=== PATIENT | male | born 1990 | race Caucasian/White ===

== ENCOUNTER 2017-01-03 07:33 | Day surgery (SDC) | payer OTHER ==
[~2017-01-03] VITALS: Ht 172.7 cm; Wt 96.2 kg
[2017-01-03] VITALS (12 sets, daily range): BP systolic 106–141; BP diastolic 63–86; PULSE 80–96; RESP 14–19; Ht 172.7 cm; Wt 96.2 kg
[~2017-01-03 07:33] MED LIST: CEFAZOLIN 1 GM/50 ML (PMX) 50 ML IVPB SCH; SOD CHLORIDE 0.9% 1,000 ML IV SCH
[2017-01-03] MEDS ORDERED: DOXY100T20 PO (07:58)
[2017-01-03 08:37] LABS: BASOPHILS % 0.3 % (0.0-2.0); EOSINOPHILS # 0.2 10^3/ul (0.0-0.5); EOSINOPHILS % 1.6 % (0.0-7.0); HEMATOCRIT 43.5 % (42.0-52.0); HEMOGLOBIN 15.4 g/dl (14.0-18.0); LYMPHOCYTES # 3.3 10^3/ul (0.8-2.9); LYMPHOCYTES % 34.8 % (15.0-51.0); MEAN CORPUSCULAR HEMOGLOBIN 30.7 pg (29.0-33.0); MEAN CORPUSCULAR HGB CONC 35.4 g/dl (32.0-37.0); MEAN CORPUSCULAR VOLUME 86.8 fl (82.0-101.0); MEAN PLATELET VOLUME 10.7 fl (7.4-10.4); MONOCYTE # 0.6 10^3/ul (0.3-0.9); MONOCYTES % 6.5 % (0.0-11.0); NEUTROPHILS % 56.6 % (39.0-77.0); PLATELET COUNT 258 10^3/UL (140-415); RED BLOOD COUNT 5.01 10^6/ul (4.70-6.10); RED CELL DISTRIBUTION WIDTH 12.2 % (11.5-14.5); WHITE BLOOD COUNT 9.3 10^3/ul (4.8-10.8)
[2017-01-03 08:41] LABS: PROTIME 13.2 Sec (12.2-14.2)
[2017-01-03 08:42] LABS: PARTIAL THROMBOPLASTIN TIME 27.3 Sec (25.0-35.0)
[2017-01-03 08:47] LABS: ALBUMIN 4.2 g/dl (3.3-4.9); ALBUMIN/GLOBULIN RATIO 1.2; BILIRUBIN,INDIRECT 0.5 mg/dl (0-1.1); BILIRUBIN,TOTAL 0.5 mg/dl (0.2-1.3); TOTAL PROTEIN 7.7 g/dl (6.1-8.1)
[2017-01-03 09:12] LABS: CALCIUM 9.4 mg/dl (8.4-10.2); CREATININE 0.82 mg/dl (0.61-1.24); POTASSIUM 3.8 mmol/L (3.5-5.1)
[2017-01-03] MEDS ORDERED: GLYCOPYRROLATE 0.4 MG INJ ONE ×2 (09:46→09:49)
[2017-01-03] MEDS ORDERED: SUCCINYLCHOLINE CHLORIDE 100 MG/5 ML SYG IV ONE ×2 (09:46→09:49)
[2017-01-03] MEDS ORDERED: LIDOCAINE 2% (SDV) 5 ML INJ ONE ×2 (09:46→09:49)
[2017-01-03] MEDS ORDERED: NEOSTIGMINE 3 MG/3 ML SYRINGE ONE ×2 (09:46→09:49)
[2017-01-03] MEDS ORDERED: ROCURONIUM 50 MG INJ ONE ×2 (09:46→09:49)
[2017-01-03] MEDS ORDERED: PROPOFOL 0 ML ONE (09:46)
[2017-01-03] MEDS ORDERED: MEPERIDINE 100 MG INJ ONE ×2 (09:47→09:49)
[2017-01-03] MEDS ORDERED: PROPOFOL 20 ML ONE (09:49)
[2017-01-03] MEDS ORDERED: POLYMYXIN/BACITRACIN 1L IRRIG ONE (09:53)
[2017-01-03] MEDS ORDERED: MEPERIDINE 25 MG INJ IV PRN (10:00)
[2017-01-03] MEDS ORDERED: LABETALOL HCL 20MG INJ IV PRN (10:00)
[2017-01-03] MEDS ORDERED: HYDROmorphONE (0.2 MG/ML) 10ML SYG IV PRN ×3 (10:00)
[2017-01-03] MEDS ORDERED: hydrALAzine 20 MG INJ IV PRN (10:00)
[2017-01-03] MEDS ORDERED: ONDANSETRON 4 MG INJ IV PRN (10:00)
[2017-01-03] MEDS ORDERED: OXYCODONE/ACETAMINOPHEN (5/325) TAB PO PRN ×2 (10:00)
[2017-01-03] MEDS ORDERED: METOCLOPRAMIDE 10 MG INJ IV PRN (10:00)
[2017-01-03] MEDS ORDERED: FENTAnyl 50 MCG/ML VIAL IV PRN ×3 (10:00)
[2017-01-03] MEDS ORDERED: MIDAZOLAM 1 MG/ML 2 ML INJ IV PRN (10:00)
[2017-01-03] MEDS ORDERED: DIPHENHYDRAMINE 50 MG INJ IV PRN (10:00)
[2017-01-03] MEDS ORDERED: EPHEDrine SULFATE 50 MG/5 ML SYG IV PRN (10:00)
[2017-01-03] MEDS ORDERED: CEFAZOLIN 1 GM INJ ONE (10:18)
[2017-01-03] MEDS ORDERED: BUPIVACAINE 0.5%/EPI (SDV) 10 ML INJ ONE (10:41)
[2017-01-03] MEDS ORDERED: LIDOCAINE 2%/EPI 30 ML INJ ONE (10:45)
--- NOTE | 2017-01-03 11:04 | OPR ---
DATE OF OPERATION: 01/03/2017 PREOPERATIVE DIAGNOSIS: Pilonidal abscess. POSTOPERATIVE DIAGNOSIS: Pilonidal abscess. OPERATION PERFORMED: Incision and drainage of pilonidal abscess. ANESTHESIA: General. ANESTHESIOLOGIST: Dr. George Russell. SURGEON: Dr. Mayen. PAIN MANAGEMENT PHYSICIAN: Dr. Matthews. INDICATIONS FOR PROCEDURE: Patient is a 26-year-old male who presented with chronically draining sinus tract in the midline of his buttocks. He was seen in surgical consultation. Findings consistent with a pilonidal abscess were identified. The patient was counseled as to the need for definitive incision and drainage. He consented and was scheduled for surgery. OPERATIVE PROCEDURE: The patient was brought to the operating theater, placed under general endotracheal tube anesthesia. He was then placed in the prone óscar-knife position. The buttock was widely shaved, prepped, taped and draped in the usual state sterile fashion. A lacrimal duct probe was used to cannulate the sinus tract, which was just to the left of midline. It proceeded to the midline and approximately 4-5 cm inferiorly. The midline region was then incised with a scalpel. Subcutaneous tissue was dissected with cautery. Copious amounts of pus were encountered. A 2nd incision was made from the sinus tract for approximately 1 cm to connect it with the abscess cavity. The wound was then debrided of nonviable tissue. Bleeding was controlled with cautery. It was then copiously irrigated with hydrogen peroxide and Betadine. The area was then infiltrated with 2 percent lidocaine local anesthetic with epinephrine and the wound was then packed with sterile moist gauze and a sterile dressing was applied. The patient tolerated procedure well. ESTIMATED BLOOD LOSS: Approximately 10 mL. COMPLICATIONS: There were no complications. DISPOSITION: The patient was transported in stable condition to the recovery room. Dictated By: Kaleb Mayen MD /[email or web address] /Document#: [id number]
== END 2017-01-03 13:44 | disposition home or self-care (01) ==
LOC: SDS 07:33
PROVIDERS: ATTEND Surgery Surgical Oncology
DX: L05.01 Pilonidal cyst with abscess (principal)
CPT/HCPCS: 10081; 80053; 85025; 85610; 85730; J0690; J2175; J2710; Z7512; Z7610; J7999